=== PATIENT | male | born 1980 | race African-American/Black ===

== ENCOUNTER 2019-12-31 15:46 | Emergency (ER) | payer OTHER ==
[2019-12-31 15:53] VITALS: BP 143/82
[2019-12-31] MEDS ORDERED: LIDOCAINE 5% (700 MG) TRANSDERMAL ADH..PATCH TP ONE (16:43)
[2019-12-31] MEDS ORDERED: KETOROLAC TROMETHAMINE INJ/PF 30 MG/1 ML SDV IM ONE (16:43)
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
== END 2019-12-31 17:31 | disposition home or self-care (01) ==
LOC: ER 15:46
DX: S39.012A Strain of muscle, fascia and tendon of lower back, initial encounter (principal); S16.1XXA Strain of muscle, fascia and tendon at neck level, initial encounter; V49.40XA Driver injured in collision with unspecified motor vehicles in traffic accident, initial encounter
CPT/HCPCS: 99283; 96372; 72110; J1885